=== PATIENT | female | born 2000 | race American Indian/Alaskan Native ===

== ENCOUNTER 2021-10-03 21:53 | Outpatient (CLI) | payer MEDICAID ==
[2021-10-03 22:30] VITALS: BP 99/60
== END 2021-10-04 00:18 | disposition home or self-care (01) ==
LOC: TRG 21:53 → LD 21:56 → TRG 10-04 00:18
PROVIDERS: ATTEND Obstetrics & Gynecology
DX: Z34.92 Encounter for supervision of normal pregnancy, unspecified, second trimester (principal); Z3A.27 27 weeks gestation of pregnancy
CPT/HCPCS: 59025